=== PATIENT | female | born 1960 | race Caucasian/White ===

== ENCOUNTER 2017-01-20 13:20 | Emergency (ER) | payer OTHER ==
[~2017-01-20] VITALS: Ht 162.6 cm; Wt 106.1 kg
[~2017-01-20 13:20] MED LIST: ASPI-630 PO; BIOT25006 PO; METO25TA2 PO; OMEG1CAP28 PO; OMEP40CA5 PO; [UNRECOGNIZED DRUG - CODE] PO; bariatric vitamin PO
[2017-01-20 13:50] VITALS: BP 162/85
[2017-01-20] MEDS ORDERED: CYCL10TA2 PO (14:14)
--- NOTE | 2017-01-20 14:14 | PHYS DOC ---
Past Medical History Past Medical History: Diabetes-Type II, Hypertension Additional Past Medical Histor: SLEEP APNEA, FACTOR 5 Past Surgical History: , Gastric Bypass, Tonsillectomy, Tubal ligation Alcohol Use: None Drug Use: None Adult General Chief Complaint Chief Complaint: LOWER EXT PAIN [facility] HPI Patient is a 56 year old female presents emergency department stating that she' s been having left lower back pain for the last week. She also states that on Thursday she developed back pain that radiated into the left upper thigh. Patient states that she has had no injury no trauma, she has had no incontinence of bowel or bladder. Patient states that she has been taken Flexeril once in the evening to help with the discomfort. She has also been taken Tylenol for pain and discomfort. Review of Systems Review of Systems Constitutional: Denies fever or chills [] Eyes: Denies change in visual acuity, redness, or eye pain [] HENT: Denies nasal congestion or sore throat [] Respiratory: Denies cough or shortness of breath [] Cardiovascular: No additional information not addressed in HPI [] GI: Denies abdominal pain, nausea, vomiting, bloody stools or diarrhea [] : Denies dysuria or hematuria [] Musculoskeletal: Complaining of lower back pain on the left with radiation down into the left thigh Integument: Denies rash or skin lesions [] Neurologic: Denies headache, focal weakness or sensory changes [] Endocrine: Denies polyuria or polydipsia [] Allergies Allergies Allergies Coded Allergies Type Severity Reaction Last Updated Verified No Known Drug Allergies 11/20/14 No Physical Exam Physical Exam Constitutional: Well developed, well nourished, no acute distress, non-toxic appearance. [] HENT: Normocephalic, atraumatic, bilateral external ears normal, oropharynx moist, no oral exudates, nose normal. [] Eyes: PERRLA, EOMI, conjunctiva normal, no discharge. [] Neck: Normal range of motion, no tenderness, supple, no stridor. [] Cardiovascular:Heart rate regular rhythm, no murmur [] Lungs & Thorax: Bilateral breath sounds clear to auscultation [] Abdomen: Bowel sounds normal, soft, no tenderness, no masses, no pulsatile masses. [] Skin: Warm, dry, no erythema, no rash. [] Back: No thoracic or lumbar spine tenderness no step-offs, no deformities no crepitus. Patient did have tenderness in the lower back area which on palpation created the same type of pain that she's been having at home. Extremities: No tenderness, no cyanosis, no clubbing, ROM intact, no edema. Peripheral pulses are 2+ cap refill brisk less than 2 seconds. Neurologic: Alert and oriented X 3, normal motor function, normal sensory function, no focal deficits noted. [] Psychologic: Affect normal, judgement normal, mood normal. [] Current Patient Data Vital Signs Vital Signs Date Time Temp Pulse Resp B/P (MAP) Pulse Ox O2 Delivery O2 Flow Rate FiO2 01/20/17 13:50 98.2 83 18 93 Room Air 98.2 EKG EKG [] Radiology/Procedures Radiology/Procedures [] Course & Med Decision Making Course & Med Decision Making Pertinent Labs and Imaging studies reviewed. (See chart for details) Patient was instructed to use Flexeril to help with the pain and discomfort. She 'll be provided with a prescription in which she states she is out of home. Patient states that she is unable to take ibuprofen therefore steroids will be provided for the patient. Patient was encouraged to follow up with primary care physician in the next 10 days. Signs and symptoms to return back to emergency department as been provided. [] Dragon Disclaimer Dragon Disclaimer This electronic medical record was generated, in whole or in part, using a voice recognition dictation system. Departure Departure Impression: Primary Impression: Low back pain Disposition: 01 HOME, SELF-CARE Condition: STABLE Referrals: KUN HERRERA (PCP) Patient Instructions: Back Pain, Adult, [id number], Sciatica, [id number] Additional Instructions: Activity as tolerated. Steroids as prescribed. Flexeril will cause drowsiness do not take any be alert and oriented. Ice packs on 20 minutes off 20 minutes several times a day. Follow-up to primary care physician in the next 7-10 days. Return back to emergency prior signs symptoms of become worse. Scripts Cyclobenzaprine Hcl (CYCLOBENZAPRINE HCL) 10 Mg Tablet 10 MG PO TID Y for MUSCLE SPASMS, #30 TAB Prov: DEVAUGHN HUNTER APRN 01/20/17 DEVAUGHN HUNTER APRN Jan 20, 2017 14:14
[2017-01-20] MEDS ORDERED: PRED20TA PO (14:17)
== END 2017-01-20 14:28 | disposition home or self-care (01) ==
LOC: ER 13:20
DX: M54.5 Low back pain (principal); M79.652 Pain in left thigh; E11.9 Type 2 diabetes mellitus without complications; I10 Essential (primary) hypertension; G47.30 Sleep apnea, unspecified
CPT/HCPCS: 99283

== ENCOUNTER → 2017-02-05 | Outpatient (CLI) | payer OTHER ==
[2017-01-20 13:50] VITALS: BP 162/85
[~2017-02-05] MED LIST changes: +CYCL10TA2 PO; +PRED20TA PO
--- NOTE | 2017-02-05 13:45 | KCIC ---
RENAL SONOGRAPHY INDICATIONS: Abnormality of the right kidney seen on MRI. FINDINGS: The longitudinal and AP and transverse dimensions of the right kidney are 13.9 cm and 5.7 cm and 5.7 cm respectively. There is poor visualization of the right kidney. Within the upper pole, a complex hypoechoic nodule is seen measuring 3.8 cm in greatest dimension. There is some sound through-transmission and therefore this may represent a complex cystic lesion. The longitudinal and AP and transverse dimensions of the left kidney are 12.8 cm and 4.7 cm and 5.2 cm respectively. No renal mass is seen on this side. No hydronephrosis or perinephric fluid collection is seen on either side. Urinary bladder is not abnormally distended. IMPRESSION: No hydronephrosis is seen on either side. There is a complex hypoechoic lesion of the upper pole of the right kidney which measures 3.8 cm in greatest dimension. Therefore, recommend CT study of the abdomen with and without contrast for further evaluation. Electronically signed by: Haja Urbina MD (02/05/2017 1:42 PM) [id number]
== END | disposition home or self-care (01) ==
LOC: KCIC US 12:06
PROVIDERS: ATTEND Family Medicine
DX: R93.5 Abnormal findings on diagnostic imaging of other abdominal regions, including retroperitoneum (principal)
CPT/HCPCS: 76770

== ENCOUNTER → 2017-02-18 | Outpatient (CLI) | payer OTHER ==
[2017-01-20 13:50] VITALS: BP 162/85
[~2017-02-18] MED LIST changes: +IOHEXOL 300 MG/ML 100ML VIAL. IV ONE
--- NOTE | 2017-02-18 09:31 | KCIC ---
EXAM: Abdomen and pelvis CT with and without intravenous contrast. HISTORY: Renal mass. TECHNIQUE: Computed tomographic images of the abdomen and pelvis were obtained prior to and following the administration of 100 cc Omnipaque 300 intravenous contrast. Multiplanar reformatting was performed. *One or more of the following individualized dose reduction techniques were utilized for this examination: 1. Automated exposure control. 2. Adjustment of the mA and/or kV according to patient size. 3. Use of iterative reconstruction technique. COMPARISON: Renal sonogram dated 02/05/2017. FINDINGS: Evaluation of the lower thorax demonstrates 2.0 cm right and 1.6 cm left medial lower lobe pulmonary nodules. There is also a 3 mm nodule within the posterior right lower lobe. There is basilar atelectasis. There is lingular and right middle lobe atelectasis or scarring. There is coronary artery atherosclerosis. There is mild hepatomegaly. No focal hepatic lesion is seen. The gallbladder is unremarkable. The common bile duct is prominent in caliber. No lesion is seen to the level of the ampulla. There is a focus of gas adjacent to the common bile duct, possibly due to prior instrumentation or a tiny duodenal diverticulum. No suspicious pancreatic lesion is seen. The spleen is unremarkable. There are postoperative changes involving the stomach. There is a 1.5 cm enhancing nodule within the lateral limb of the right adrenal gland and 2.5 cm nodule within the inferior aspect of the fr[place] of the left adrenal gland. There is a heterogeneous enhancing mass with cystic or necrotic component within the medial aspect of the right kidney, measuring approximately 5.5 cm in maximum craniocaudal dimension. The main cystic or necrotic component measures 1.9 cm. This extends inferiorly along the right renal pelvis to the right ureteropelvic junction. There is no additional mixed solid and cystic enhancing mass within the lateral mid zone of the right kidney measuring 3.3 cm in maximum dimension. There may be a tiny cortical cyst within the left kidney. There are accessory renal arteries. The renal veins are patent. There is moderate colonic stool. There is no bowel obstruction. There is a midline ventral abdominal wall hernia containing fat, measuring 3.3 cm in maximum dimension and extending through a ventral abdominal wall defect measuring 1.5 cm. There is an additional hernia inferior to this level containing fat and a short segment of small bowel. This measures 5.6 cm in maximum dimension. There are calcified granulomas within the ventral abdominal wall pannus. The uterus is unremarkable. There are small ovarian follicles. No pathologically enlarged lymph node is seen. There is aortobiiliac atherosclerosis. There is multilevel degenerative change throughout the thoracic and lumbar spine. No suspicious osseous lesion is seen. IMPRESSION: 1. Heterogeneous enhancing mass with cystic or necrotic components within the right kidney extending from the medial mid zone inferiorly along the renal pelvis. This measures approximately 5.5 cm in maximum craniocaudal dimension and is consistent with malignancy. 2. Heterogeneous enhancing mixed solid and cystic lesion within the lateral mid zone of the right kidney measuring 3.3 cm, also consistent with malignancy. 3. 2.0 cm right and 1.6 cm left lower lobe pulmonary nodules, likely metastatic given the aforementioned findings. There is also a 3 mm indeterminant nodule within the right lower lobe. 4. 1.5 cm right and 2.5 cm left adrenal nodules, likely metastatic given the aforementioned findings. Note is made that the left adrenal nodule maximum measurement is best seen on coronal reformatted images. 5. Small fat and small bowel containing ventral abdominal wall hernias. 6. Mild hepatomegaly. Electronically signed by: So Colin MD (02/18/2017 9:28 AM) [id number]
== END | disposition home or self-care (01) ==
LOC: KCIC CT 08:02
PROVIDERS: ATTEND Family Medicine
DX: E27.8 Other specified disorders of adrenal gland (principal); N28.89 Other specified disorders of kidney and ureter; R16.0 Hepatomegaly, not elsewhere classified; R91.8 Other nonspecific abnormal finding of lung field
CPT/HCPCS: 74178; 82565; Q9967

== ENCOUNTER → 2017-09-03 | Outpatient (CLI) | payer OTHER | END | disposition home or self-care (01) | LOC: EKG 14:42 | DX: C64.9 Malignant neoplasm of unspecified kidney, except renal pelvis (principal); C79.9 Secondary malignant neoplasm of unspecified site | CPT/HCPCS: 93005 ==